=== PATIENT | female | born 1950 | race Caucasian/White ===

== ENCOUNTER 2023-05-26 16:03 | Observation (INO) | payer MEDICARE, SELFPAY ==
[2023-05-26] VITALS (13 sets, daily range): BP systolic 123–144; BP diastolic 60–72; PULSE 63–89; BMI 20.8
[2023-05-26 11:05] LABS: % Basophils 1.5 % (0-2); % Eosinophils 1.9 % (0-6); % Immature Granulocytes 0.2 % (0-0.5); % Monocytes 8.3 % (1.7-9.3); % Neutrophils 64.1 % (42.2-75.2); Absolute Basophils 0.1 10^3/uL (0-0.2); Absolute Eosinophils 0.1 10^3/uL (0-0.7); Absolute Lymphocytes 1.2 10^3/uL (1.2-3.4); Absolute Monocytes 0.4 10^3/uL (0.1-0.6); Absolute Neutrophils 3.1 10^3/uL (1.4-6.5); Hematocrit 35.4 % (37.0-47.0); Hemoglobin 12.4 g/dL (12.0-16.0); Mean Corpuscular Hgb 31.6 pg (27.0-31.0); Mean Corpuscular Volume 90.1 fL (81.0-99.0); Mean Platelet Volume 8.8 fL (7.4-10.4); Nucleated Red Blood Cells % 0 %; Platelet Count 263 10^3/uL (130-400); Red Blood Cell Count 3.93 10^6/uL (4.20-5.40); White Blood Cell Count 4.8 10^3/uL (4.8-10.8)
[2023-05-26 11:22] LABS: ALT (SGPT) 19 U/L (0-35); AST (SGOT) 26 U/L (14-36); Albumin 3.9 g/dl (3.5-5.0); Alkaline Phosphatase 65 U/L (38-126); Blood Urea Nitrogen 17 mg/dl (7-17); Calcium 8.9 mg/dl (8.4-10.2); Carbon Dioxide 24 mmol/L (22-30); Chloride 109 mmol/L (98-107); Glucose 107 mg/dl (70-99); Potassium 3.9 mmol/L (3.5-5.1); Sodium 135 mmol/L (135-145); Total Bilirubin 0.3 mg/dl (0.2-1.3); Total Protein 6.8 g/dl (6.3-8.2); eGFR > 60.00
[2023-05-26 11:47] LABS: Troponin I 0.038 ng/ml
--- NOTE | 2023-05-26 12:08 | ED.GENMED ---
History of Present Illness
General
Chief Complaint: Fainting/Passed Out
Source: patient
Exam Limitations: none
Time Seen by Provider: 05/26/23 12:08
Nursing documentation reviewed up to this point in time: agreed with
Travel History
Have you had any contact with someone who has COVID-19?: No
Do you have any symptoms of coronavirus? Fever > 100 degrees, chills, cough, shortness of breath, sore throat, loss of taste or smell, muscle aches, or headache?: No
History of Present Illness
History of Present Illness:
72-year-old female with history of HLD, MD, appendectomy, hypothyroid presents with episode of dizziness, rigidity and unresponsiveness.
Patient is visiting family from out of town. She was seen at [facility] yesterday for 'tremors' daughter at bedside states that she had general body tremors with clenching of jaw tremors, at 100 and they did a head CT, lab work, UA and
monitored her and daughter states the workup was completely negative.
They got home at 530 this morning, went to bed and worked up by 9 AM. They were sitting at the breakfast table when the patient had a sudden urge to go the bathroom, she got up and felt dizzy so they sat her back down. She was a little nauseous at
the time then daughter states 'all of a sudden she went read her chin was down her chest and she could not lift her chin due to the rigidity, her eyes rolled back;' they could not move her due to the rigidity. Eventually they laid her on the floor
and after about a minute and a half she became responsive again and was confused, had 'trouble speaking,' and no recollection of getting up to go to the bathroom. At that point she vomited once.
Patient has no recollection of the incident. Right now she feels fatigued and she has pain in her left thigh. No recollection of injury to the thigh.
Patient denies headache, change in vision, N/V/C/D. She denies abdominal pain other than her chronic mild abdominal discomfort. She denies chest pain or trouble breathing. Denies numbness or tingling or weakness in her extremities.
Past History
Past History
ED Past Medical History: HTN and Hyperthyroidism
ED Past Surgical History: Appendectomy and Other ([place] teeth)
Social History
Tobacco: Non-smoker
Alcohol: None
Personal:
Living: with family
Review of Systems
Review of Systems
Allergies reviewed?: Yes
All Other Systems: ROS reviewed and negative except as documented in HPI and ROS
Constitutional: Reports fatigue; Denies fever
EENT: Denies sore throat
Respiratory: Denies trouble breathing
Cardiac: Denies chest pain, diaphoresis, palpitations or syncope
ABD/GI: Reports abdominal pain (Mild, chronic, nothing new); Denies nausea, vomiting, diarrhea, constipated, bloody stools or black stools
: Denies dysuria, frequency, flank pain, difficulty voiding or urgency
Musculoskeletal: Reports neck pain (Chronic, nothing new)
Skin: Reports no symptoms
Neurological: Reports weakness and other (1 minute episode of unresponsiveness, rigidity, confusion, trouble speaking as she came out of the); Denies dizzy, headache or numbness
Phy Exam
Physical Exam
Physical Exam:
GENERAL: No acute distress. A&Ox3.
CONSTITUTIONAL: Afebrile.
EYES: PERRL, conjunctivae normal
Neck: Supple
ENMT: moist mucus membranes, Pharynx nl
RESPIRATORY: Regular respirations, nonlabored, lungs clear.
CARDIOVASCULAR: Regular rate and rhythm, no murmurs, no rubs.
GI: Soft, nontender, normal BS
MUSCULOSKELETAL: Moves with ease. Well perfused.
SKIN: Warm, dry, pink
PSYCH: Normal mood and affect. Well kept, interactive and appropriate
NEUROLOGIC: Awake, alert and oriented. No focal neurological deficits speech clear. Strength equal throughout. Cranial nerves II through XII intact.
Course
Orders/Labs/Results
Orders:
Orders
05/26/23 10:54
Electrocardiogram (*1) Urgent
Reason for Study: Syncope
05/26/23 10:55
EKG- Treatment ONCE
05/26/23 10:56
CMP [Comprehensive Metabolic Panel] Urgent
Complete Blood Count/With Diff Urgent
Troponin I Urgent
05/26/23 13:46
Electrocardiogram (*1) Urgent
Reason for Study: Syncope
Other Reason for Exam: repeat
05/26/23 13:47
EKG- Treatment ONCE
05/26/23 13:49
Troponin I Urgent
05/26/23 Dinner
Regular
At Your Request: Full Participation
05/26/23 15:46
Consult Neurology [NEUROLOGY CONSULT] Routine
Consulting Provider: Bro Stone
Was physician already notified: Yes
Reason for consult: Unresponsive episode, prior tremors yesterday
Orthostatic Vital Signs As Directed
Orthostatic VS Frequency: Daily
05/26/23 15:47
Admit/Transfer Patient As Directed
Co-Sign Provider:
Level of Care: Observation services
Assign to:: Telemetry
Physician / Group: orin shah
Diagnosis: unresponsive episode with post confusion, tremors yesterday
Reason for Telemetry: Arrhythmia
Date to Stop Telemetry: 05/29/23
Time to Stop Telemetry: 11:00
Code Status As Directed
Resuscitation Status: Full Code
05/26/23 15:57
Precautions As Directed
Type of Precautions: Seizure
05/26/23 16:00
0.9% Sodium Chloride 1000 ml [Nss] 1,000 ml IV 100 mls/hr
05/26/23 17:38
Acetaminophen [Tylenol] 650 mg PO Q4HPRN PRN
Lorazepam [Ativan] 1 mg IV Q4HPRN PRN
05/26/23 17:38
Activity As Directed
Activity Level: As Tolerated
Intake/ Output As Directed
Frequency: Per unit guidelines
Pneumatic Compression Sleeves As Directed
Type: Knee high
Precautions As Directed
Type of Precautions: Seizure
Vital Signs As Directed
Frequency: Per unit guidelines
Ot Eval And Treat Routine
Pt Eval And Treat Routine
Activity Level: As Tolerated
DX Deep Vein Thrombosis Video Routine
05/27/23 06:00
EEG Routine IN AM
Reason for Exam: tremors confusion concern seizure
Cardiovascular Evaluation IN AM
Complete Blood Count/With Diff IN AM
Comprehensive Metabolic Panel IN AM
TSH Reflex To Free T4 IN AM
MRI Brain [MR Brain W/o & With Contrast] IN AM
Comment:
Reason For Exam: unresponsive episode
OK for patient to be off Cardiac Monitoring for MRI: Yes
Recent pill cam endoscopy?: No
Pacemaker/Defibrillator?: No
Levothyroxine [Synthroid] 50 mcg PO DAILY@0600
05/27/23 08:00
Multivitamin [Theragran] 1 tablet PO DAILY
cholecalciferol (vitamin D3) 1 tablet PO DAILY
05/29/23 11:00
DC Protocol for Telemetry ONCE
Abnormal Lab Results
05/26/23
10:56
RBC 3.93 L 10^6/uL
(4.20-5.40)
Hct 35.4 L %
(37.0-47.0)
MCH 31.6 H pg
(27.0-31.0)
Chloride 109 H mmol/L
(98-107)
Glucose 107 H mg/dl
(70-99)
Troponin I 0.038 H* ng/ml
05/26/23 10:56
05/26/23 10:56
Vital Signs
Initial and Last Documented VS:
Initial Vital Signs
Temp Pulse Resp BP Pulse Ox
98.1 F 66 16 141/68 99
05/26/23 10:43 05/26/23 10:43 05/26/23 10:43 05/26/23 10:43 05/26/23 10:43
Last Documented Vital Signs
Temp Pulse Resp BP Pulse Ox
98.3 F 81 20 129/72 99
05/26/23 17:49 05/26/23 17:49 05/26/23 17:49 05/26/23 17:49 05/26/23 17:49
MDM/Problems Addressed
Differential Diagnosis Includes:
vaso vagal syncope, seizure
MDM/Problems Addressed:
72-year-old female with history of HLD, MD, appendectomy, hypothyroid presents with episode of dizziness, rigidity and unresponsiveness.
Patient is visiting family from out of town. She was seen at [facility] yesterday for 'tremors' daughter at bedside states that she had general body tremors with clenching of jaw tremors, at 100 and they did a head CT, lab work, UA and
monitored her and daughter states the workup was completely negative.
They got home at 530 this morning, went to bed and worked up by 9 AM. They were sitting at the breakfast table when the patient had a sudden urge to go the bathroom, she got up and felt dizzy so they sat her back down. She was a little nauseous at
the time then daughter states 'all of a sudden she went read her chin was down her chest and she could not lift her chin due to the rigidity, her eyes rolled back;' they could not move her due to the rigidity. Eventually they laid her on the floor
and after about a minute and a half she became responsive again and was confused, had 'trouble speaking,' and no recollection of getting up to go to the bathroom. At that point she vomited once.
Patient has no recollection of the incident. Right now she feels fatigued and she has pain in her left thigh. No recollection of injury to the thigh.
Patient denies headache, change in vision, N/V/C/D. She denies abdominal pain other than her chronic mild abdominal discomfort. She denies chest pain or trouble breathing. Denies numbness or tingling or weakness in her extremities.
Afebrile, NAD, awake alert and oriented. No focal neurological deficits. No suspicious infectious signs.
Records from [facility] retrieved and reviewed, her vital signs were normal and stable the entire stay
Triage note reports she came from home shaking uncontrollably and with bilateral leg pain and low back pain.
Labs including CBC,CMP, CPK, Mg++, Influenza, Respiratory panel, Covid, Mycoplasma pneumoniae, U/A all WNL
Head CT report: NAD, normal for age
EKG: NSR
Results scanned into her chart
1:15 PM
CBC normal
CMP normal
Troponin is mildly elevated 0.038
Patient denies any chest pain or trouble breathing.
3:00 PM
EKG #2 NSR unchanged
Troponin #2 trending down 0.032 within normal limits
Plan: Admit: Witnessed seizure like activity, short period of unresponsiveness
Hospitalist notified of admission
*EKG
EKG Intrepretation Date: 05/26/23
Interpretation: normal
Comparison EKG: no comparison EKG present
Rate: normal
Rhythm: sinus
Edwards: normal axis
Interval: normal interval
QRS Pattern: normal QRS
Ischemia: no ischemia
*Critical Care Note
Total Time (30-74mins, 75-104mins- exclusive of procedures): Not Applicable
ED Attending Note
-
Portions of this chart may have been created with voice recognition software.� Occasional wrong word or��sound alike� substitutions may have occurred due to the inherent limitations of voice recognition software.
Discharge Plan
Departure
Patient Disposition: Admit
Date of Disposition: 05/26/23
Time of Disposition: 15:05
Admit to: Med/Surg
Presentation/result/management discussed w/ accepting MD/DO: Hospitalist
Condition: Fair
Discharge Problem:
Episode of loss of consciousness, Witnessed seizure-like activity
Interventions
Interventions:
*Risk Screen - Suicide Last Done: 05/26/23 10:43
*General Assessment Last Done: 05/26/23 10:43
*Neglect/Abuse Screening Last Done: 05/26/23 10:43
ED- Fall Risk Assessment Last Done: 05/26/23 10:43
*ED COVID-19 Vaccine History Last Done: 05/26/23 10:43
*Nursing Disposition Last Done: 05/26/23 17:34
ED- Cardiac Assessment Last Done: 05/26/23 11:16
ED- Neurological Assessment Last Done: 05/26/23 13:55
Discharge Date and Time
Discharge Date/Time: 05/26/23 17:35
[2023-05-26 14:23] LABS: Troponin I 0.032 ng/ml
--- NOTE | 2023-05-26 15:16 | HPS.HSE ---
Family Physician
-
Family Physician: * NONE
Chief Complaint
-
Unresponsive episode with vomiting and memory loss
History of Present Illness
72-year-old female who is visiting her daughter from out of town who was seen at [facility] yesterday due to chattering of her teeth and leg tremors that lasted 1.5 hours at home. She had CT head lab work urinalysis with negative
workup. They got home at approximately 530 this a.m. went to bed and at 9 AM while sitting at the breakfast table she reported feeling nauseous she stood up and then vomited and her daughter sat her back down. She has no recall of events after
that her states when she sat down she slumped over on the table and would not respond he yelled at her and then she woke up. The daughter called 911 they advised to get her onto the ground lying. Patient has no recollection of the event.
She complains of right frontal headache over the last 3 days which is not normal for her. She started turmeric pepper and garlic over the last 2 to 3 weeks but no other new medications. She denies headache, blurred vision, abdominal pain, nausea,
diarrhea, urinary symptoms. She ambulated to the bathroom in the ER with a steady gait. She is past medical history of hypertension, hyperthyroidism, psoriasis
Medical History
Past Medical History
Past Medical History: Reports Other
Additional Past Medical History:
HTN
Hyperthyroidism
Psoriasis
Past Surgical History: Reports Other
Additional Past Surgical History:
Appendectomy
[place] teeth extraction
Social History
Tobacco: Non-smoker
Alcohol: None
Drug: None
Personal:
Living: With Family ( [place])
Employment: Retired
Family History
Family History: Other (Mother cardiomyopathy, DM 269, father [place] age 72)
Allergies / Home Medications
Allergies reflects when Allergies were last updated in [employer]
Home Medications with original date entered in [employer]
Allergy/Medication List:
Allergies
Allergy/AdvReac Type Severity Reaction Status Date / Time
Sulfa (Sulfonamide Allergy Unknown Verified 05/26/23 10:54
Antibiotics)
Home Medications
CoQ-10 1 cap PO DAILY 05/26/23
Turmeric + Garlic + Peppermint 1 cap PO DAILY 05/26/23
acetaminophen 500 mg tablet (Tylenol Extra Strength) 500 mg PO DAILYPRN PRN mild pain 05/26/23
cholecalciferol (vitamin D3) 1 tab PO DAILY 05/26/23
levothyroxine 50 mcg tablet 50 mcg PO DAILY 05/26/23
red yeast rice 600 mg capsule 600 mg PO DAILY 05/26/23
therapeutic multivitamin 1 tab PO DAILY 05/26/23
Review of Systems
-
History Source: Patient and Family ( [place])
A 12 point ROS was completed and negative except as noted: Yes
Constitutional: Denies Fever, Fatigue or Chills
EENT: Denies Sore Throat or Runny Nose
Respiratory: Denies Cough or Trouble Breathing
Cardiac: Denies Chest Pain, Diaphoresis, Palpitations or Syncope
Abdomen/GI: Reports Nausea and Vomiting (X 1 episode); Denies Abdominal Pain, Diarrhea, Constipated or Bloody Stools
: Denies Dysuria, Frequency, Flank Pain, Incontinence, Difficulty Voiding or Urgency
Musculoskeletal: Denies Joint Pain, Joint Swelling or Edema
Skin: Denies Itching or Rash
Neurological: Reports Headache (Right frontal); Denies Dizzy, Weakness or Numbness
Endocrine: Reports No Symptoms
Hematologic/Lymphatic: Reports No Symptoms
Psych: Reports Calm
Physical Exam
Vital Signs
Vital Signs
Temp Pulse Resp BP Pulse Ox
98.1 F 80 19 137/66 100
05/26/23 10:43 05/26/23 11:15 05/26/23 11:15 05/26/23 11:00 05/26/23 11:15
Physical Exam
General: Comfortable and Conversant; No Fever, Chills, Slurred Speech or Obese
HEENT: NormoCephalic, Anicteric, Moist mucous membranes, PERRLA, [place] Conjunctivae, No Ptosis and Neck Nontender
Respiratory: Clear; No Wheezes, Rales or Rhonchi
Cardiac: S1/S2 and Regular Rhythm; No Murmur, Rub, Gallop or Peripheral Edema
Breast: Deferred by me
GI: Soft, Non Tender, Non Distended, Normal Bowel Sounds and No Hepatosplenomegaly
Rectal: Deferred by Provider
Genito-urinary: Deferred by me
Musculoskeletal: No Clubbing, No Cyanosis and No Edema
Skin: Warm, Dry and Other (1 psoriatic plaque right lower extremity); No Rash
Neuro: AO x 3 (Poor recall of prior unresponsive episode today), Nonfocal/grossly intact, Cranial Nerves Intact, No Sensory Deficits and Other (Steady gait walking to bathroom); No Slurred Speech, Facial Droop or Tremors
Psych: Calm
Laboratory Results
-
05/26/23 10:56
05/26/23 10:56
Laboratory Results
Total Bilirubin 0.3 mg/dl (0.2-1.3) 05/26/23 10:56
AST 26 U/L (14-36) 05/26/23 10:56
ALT 19 U/L (0-35) 05/26/23 10:56
Alkaline Phosphatase 65 U/L (38-126) 05/26/23 10:56
Troponin I 0.032 ng/ml 05/26/23 13:49
Impression/Plan
-
Impression/plan:
Observation telemetry
#Unresponsive episode with confusion concern for CVA vs seizure vs orthostasis
-Had negative CT yesterday, lab work, UA at [facility] per records
-Consult Neurology
-Monitor for seizure activity
-Orthostatic vitals
-IV Nss
-EEG
-MRI brain with and without
- ativan 1mg prn seizure
-PT/OT/case management consult
#Non-[place] troponin elevation
Troponin 0.038> repeat 0.032 will trend
EKG: NSR 74 bpm, QTc 439 MS prior inferior/anterior infarct
#HTN�benign
137/66
no meds
#Hyperthyroidism
-Check TSH with free T4 reflex
-Continue levothyroxine 50 mcg daily
#Psoriatic arthritis Hx
Patient just started turmeric, garlic and pepper 2 to 3 weeks ago
DVT prophylaxis
SCDs
Full code
--- NOTE | 2023-05-26 15:52 | W.PN.UPDATE ---
Update Note
Progress Note Update
I saw and examined the patient.
The BOW MACHINE OPERATOR's note was reviewed and I agree with the note.
This note is an addendum to H&P by Reena Sampson
Comment:
72 yo female with no significant past medical history who is presenting from home with syncopal episode status post vomiting and episode of tremors with teeth clenching and body shakes. Patient was evaluated outside hospital where she underwent
workup including CT of the head which was negative and was discharged home. Patient denies any prior events of similar situation. Denies any chest pain. States of some mild frontal headache. No vision problems. Denies any numbing or tingling
sensation. Denies any neck pain. No fevers or chills noted. States did not have much to eat in the last 24 hours. Currently denies any nausea or vomiting. Denies any neck pain.
General no acute distress holding hands with spouse
HEENT neck is supple trach is midline negative for stridor
Cardiac S1-S2 regular rate rhythm
Lungs are clear to auscultation bilaterally
Abdomen positive bowel sounds soft nontender
Extremities no edema
Neuro awake alert and oriented nonfocal grossly intact
Impression
Syncopal episode likely triggered by vasovagal status post vomiting
Suspected seizure event
Troponin elevation
Suspected dehydration
Primary hypertension�not on meds
Psoriatic arthritis
Plan
Check orthostatic vital sign
Start patient IV fluids
Check MRI of the brain with and without contrast
Ativan as needed for seizures
EEG
Neurology evaluation
Seizure precaution for now
If repeat events start Keppra 500 mg every 12 with loading dose of 1 g
Continue other home meds
EKG with normal sinus rhythm. Ventricular rate of 74. QTc 439. No significant ST or T wave changes noted. No chest pain currently.
DVT prophylaxis
Discussed with spouse at bedside in detail
I spent a total of 78 minutes with the patient or on the floor. More than 50% of this time involved counseling and coordination of care.
[2023-05-26] MEDS: NSS 1000 IV (18:45)
[2023-05-27] VITALS (7 sets, daily range): BP systolic 102–156; BP diastolic 62–87; PULSE 75–97; O2SAT 98
--- NOTE | 2023-05-27 03:18 | PTCARENOTE ---
Pt sleeping intermittently t/o the night. Pt confused and forgetful at times, especially when first waking up doesnt remember where she is. Reality orientation provided. Bed alarm in place. IVF infusing as ordered. Will continue to monitor.
[2023-05-27] MEDS: NSS 1000 IV (05:19)
[2023-05-27] MEDS: SYNTHROID 50 MCG PO (05:19)
[2023-05-27 08:12] LABS: % Basophils 1.1 % (0-2); % Eosinophils 1.7 % (0-6); % Immature Granulocytes 0.2 % (0-0.5); % Lymphocytes 25.3 % (20.5-51.1); % Monocytes 7.6 % (1.7-9.3); % Neutrophils 64.1 % (42.2-75.2); Absolute Basophils 0.1 10^3/uL (0-0.2); Absolute Eosinophils 0.1 10^3/uL (0-0.7); Absolute Lymphocytes 1.2 10^3/uL (1.2-3.4); Absolute Monocytes 0.4 10^3/uL (0.1-0.6); Hemoglobin 13.6 g/dL (12.0-16.0); Mean Corp Hgb Conc. 35.8 g/dL (33.0-37.0); Mean Corpuscular Hgb 32.5 pg (27.0-31.0); Mean Corpuscular Volume 90.7 fL (81.0-99.0); Mean Platelet Volume 9.1 fL (7.4-10.4); Nucleated Red Blood Cells % 0 %; Platelet Count 278 10^3/uL (130-400); Red Blood Cell Count 4.19 10^6/uL (4.20-5.40); Red Cell Dist. Width 13.2 % (11.5-14.5); White Blood Cell Count 4.7 10^3/uL (4.8-10.8)
--- NOTE | 2023-05-27 08:17 | CON.NEURO4 ---
Addendum entered and electronically signed by Bro Stone MD 05/27/23 12:19:
I saw and evaluated the patient I reviewed the note by Hellen Hernandez agree with the findings with the following comments:
One 72-year-old woman with past medical history of hypothyroidism, hypertension, psoriasis who presents to the hospital with an episode of losing consciousness witnessed at home after some vomiting at breakfast, and had had an episode of shaking
with altered consciousness around 2 days previous for which she had hospitalization nearby.
Patient reports no family history of seizures or epilepsy or family history of syncope, no previous episodes of seizures as a child no meningitis or serious head injuries in her life. Reports no episodes of shaking like instances before but has had
some fainting previously.
Patient reports around 2 days ago 05/24 in the evening she was reading in a supine position in bed and began to feel somewhat strange started to feel like her eyelids were repeatedly blinking bilaterally with some chattering of her teeth and then low
amplitude bilateral shaking of her legs and arms during which she felt that she had retained consciousness. Her reports that he witnessed this and saw that she began with bilateral leg shaking as well as arm shaking and that her eyes were
open with this and it did appear that she seemed to hear him and try to talk but could not talk normally. Total duration of shaking around 20 to 30 minutes. She had evaluation at [facility] and had CT head noncontrast urinalysis and
blood work reportedly and was discharged in improved condition. No tongue biting or urinary or bowel incontinence with this episode.
Yesterday morning on 05/25 she had eaten little breakfast with soup and then began to not feel well and vomited, shortly after this her witnessed her to tuck her chin down and then quickly retain normal level of consciousness and was brought
to the ER here.
No history of any recent stressors.
Patient does report some short-term memory loss recently that is been concerning to her.
Neurologic examination shows normal attention and conversation no aphasia no neglect normal cranial nerves motor function sensory and reflexes.
EEG normal
CT head noncontrast unremarkable
Assessment:
1: Very likely vasovagal induced syncope after vomiting more recently
2: The more recent episode of whole body low amplitude shaking with some degree of retained consciousness and ability to hear and attempt speaking with her does not sound like epileptic seizure. Differential diagnosis would include sleep
disorder, metabolic abnormality, psychogenic nonepileptic seizure
3: Recent short-term memory problems
Recommendations
-Would not start any chronic antiseizure medications
-Will check vitamin B1 B12 folate ammonia ferritin iron and total iron-binding content
-Check MRI of the brain and MRA of the head and neck
-Check transthoracic echocardiogram and monitor on cardiac telemetry
-Discussed with the patient the possibility for stress or psychogenic seizures that would be treatable with stress reduction, therapy. Unclear on if further episodes could happen but would not be treated with any medications.
-Would benefit from outpatient neurology follow-up for further evaluation of short-term memory difficulties
Original Note:
Consultation - Neurology 4
-
CONSULTING PHYSICIAN: Marti Stone MD
REFERRING PHYSICIAN: Hospitalists/JULIA Luo
DICTATED BY: JULIA Galarza
DATE/TIME OF REQUEST: 05/26/23
DATE/TIME OF CONSULTATION: 05/27/23
Reason for Consultation: Tremors, unresponsive episode
History of Present Illness:
This is a 72-year-old right-handed female who has presented to the hospital on 05/26/23 with report of passing out event. She has poor recollection of the past several days and some of this information is obtained from her at bedside. Two
nights ago on 05/25/23 patient reports that she got into bed and was reading when she started to feel 'odd.' Her eyelids started blinking repeatedly and her teeth were chattering uncontrollably. Her reports that both of her legs and arms were
shaking. She had her eyes open and seemed to be able to hear him. She tried to talk and he wasn't able to understand what she was saying. This lasted for 20-30 minutes before EMS arrived, he thinks she was still shaking when they put her in the
ambulance. He did not go to the hospital with her and is unsure how she was there, their daughter who is not here went with her. She denies any tongue biting or bowel/bladder incontinence. She was evaluated at [facility] following this
event and had an unremarkable CT head, lab work, and UA prior to discharge. She went to bed at 0530 in the morning on 05/25/22, and then woke up for the day at 0900. She reports feeling mildly nauseous and very hungry. She got a bowl of soup and sat
down at the breakfast counter. She had a few bites of soup but then started to not feel well got up to use the bathroom. She felt dizzy upon standing and her daughter assisted her to sit back down. She then proceeded to vomit. Her family reports
that she then became unresponsive, flushed, her chin was tucked down to her chest, her body was rigid, and her eyes rolled back. Her reports that he yelled loudly to 'wake her up' and after about 1 minute she became responsive again but was
confused, had trouble getting her words out, and did not recall the event. She denies any tongue biting or incontinence with this event and has no muscle aching following the event. Currently, she reports feeling at her baseline. She denies any
headache, dizziness, vision changes, speech/swallow difficulty, nausea, numbness weakness, chest pain, palpitations, and shortness of breath. She reports a minor head injury as a child with a resultant 'dent' on the top of her head. She denies any
history of seizure, starring episodes, or meningitis. She does report having a few syncopal events in her younger years. She reports memory issues in the past few months including one episode of forgetting that she had eaten breakfast already that
day.
Past Medical History: Hypothyroidism, HTN, HLD, psoriasis, arthritis
Surgical History: Appendectomy, wisdom teeth removal
Family History: Reviewed and noncontributory.
Social History: Denies tobacco, alcohol, and illicit drug use.
Allergies: Sulfa.
Home Medications: See below.
Review of Symptoms:
Patient denies any fever, headache, chest pain, shortness of breath, GI or symptoms.
�Per the HPI.�All systems are reviewed negative except above.
Physical Exam:
The patient is afebrile, abdomen is nondistended, breathing is unlabored, skin is warm and dry, no edema.
Neurologic Examination:
The patient is awake, alert and oriented x 3. She is able to follow commands and answer questions appropriately. There is no aphasia or dysarthria. On cranial nerve assessment, pupils are 3 mm bilateral, round and reactive to light and
accommodation. Visual topete are full. Extraocular movements are intact. Facial sensations are intact and bilaterally symmetrical, there is no facial asymmetry. Hearing is intact bilaterally to normal conversation volume. Tongue palate and uvula are
midline. Sternocleidomastoid strengths are full bilaterally. Motor strengths are 5/5 bilateral upper and lower extremities on medical research George scale. There is no drift or involuntary movement noted. Deep tendon reflexes are 2+ bilateral
upper and lower extremities and Babinski is absent bilaterally. There was no extinction noted on double simultaneous stimulation. Coordination is intact by finger to nose bilaterally.
Lab Results: See below.
Neuro Imaging:
1. EEG 05/27/23: Unremarkable.
Differentials for the patient's presentation include:
1. Syncopal event, possibly orthostasis likely producing second event/symptoms.
2. First event sounds more supportive of metabolic disturbance or stress response producing body shaking; not very supportive of epileptic seizure.
3. Patient expresses concern for cognitive impairment, unclear source of this.
Patient has the following risk factors for their symptoms: None.
Recommendations:
-MRI brain noncontrast, MRA head/neck ordered/pending.
-TTE ordered/pending.
-No clear indication for initiating antiseizure medication at this time.
-Check orthostatic vital signs BID.
-Checking blood work for metabolic abnormalities.
-PT/OT/ST evaluations.
-DVT prophylaxis.
-Patient may benefit from outpatient neuropsychological testing and neurology follow-up closer to their home.
-Will follow pending results.
Discussed patient care with: Dr. Stone, the patient, patient's spouse
Vital Signs and Labs
-
Vital Signs and Labs:
Vital Signs
Temp Pulse Resp BP Pulse Ox
97.8 F 79 16 141/74 97
05/27/23 09:16 05/27/23 09:16 05/27/23 09:16 05/27/23 09:16 05/27/23 09:16
Lab Results
05/27/23 07:02
05/27/23 07:02
Sodium 138 mmol/L (135-145) 05/27/23 07:02
Potassium 3.9 mmol/L (3.5-5.1) 05/27/23 07:02
BUN 11 mg/dl (7-17) 05/27/23 07:02
Glucose 84 mg/dl (70-99) 05/27/23 07:02
Calcium 9.0 mg/dl (8.4-10.2) 05/27/23 07:02
LDL Cholesterol, Calc 168 mg/dl 05/27/23 07:02
Vitamin B12 878 pg/ml (239-931) 05/27/23 07:02
Medications
-
Active Medications
Generic Name Dose Route Start Last Admin
Trade Name Freq PRN Reason Stop Dose Admin
Acetaminophen 650 mg 05/26/23 17:38
Acetaminophen 325 Mg Tablet PO 06/23/23 17:37
Q4HPRN PRN
mild pain/COOL/temp> 100.4F
Sodium Chloride 1,000 mls @ 100 mls/hr 05/26/23 16:00 05/27/23 05:19
Nss IV 1,000 mls
.Q10H HILL Administration
Levothyroxine Sodium 50 mcg 05/27/23 06:00 05/27/23 05:19
Levothyroxine 50 Mcg Tablet PO 06/24/23 05:59 50 mcg
DAILY@0600 HILL Administration
Lorazepam 1 mg 05/26/23 17:38
Lorazepam 2 Mg/Ml Vial IV 06/23/23 17:37
Q4HPRN PRN
seizure
Multivitamins Therapeutic 1 tablet 05/27/23 08:00
Multivitamin Tablet PO 06/24/23 07:59
DAILY HILL
Non-Formulary Medication 1 tablet 05/27/23 08:00
Cholecalciferol (Vitamin D3) PO 06/24/23 07:59
DAILY HILL
Sodium Chloride 0.5 ml 05/26/23 17:40
Nss (Pf) 10 Ml Vial For Ativan 1 Mg Dose IV 06/23/23 17:39
Q4HPRN PRN
IV LORAZEPAM DILUTION
Sodium Chloride 0 flush 05/26/23 18:00
Sodium Chloride 0.9% (Flush) Syringe IV 06/23/23 17:59
PER PROTOCOL HILL
Home Medications
�Medication �Instructions �Recorded
CoQ-10 1 cap PO DAILY 05/26/23
Turmeric + Garlic + Peppermint 1 cap PO DAILY 05/26/23
acetaminophen 500 mg tablet 500 mg PO DAILYPRN PRN mild pain 05/26/23
(Tylenol Extra Strength)
cholecalciferol (vitamin D3) 4,000 mg PO DAILY 05/26/23
levothyroxine 50 mcg tablet 50 mcg PO DAILY 05/26/23
red yeast rice 600 mg capsule 600 mg PO DAILY 05/26/23
therapeutic multivitamin 1 tab PO DAILY 05/26/23
[2023-05-27 08:52] LABS: ALT (SGPT) 18 U/L (0-35); AST (SGOT) 27 U/L (14-36); Albumin 3.9 g/dl (3.5-5.0); Alkaline Phosphatase 64 U/L (38-126); Blood Urea Nitrogen 11 mg/dl (7-17); Carbon Dioxide 21 mmol/L (22-30); Chloride 107 mmol/L (98-107); Estimated Creatinine Clearance 72 ml/min; Glucose 84 mg/dl (70-99); HDL Cholesterol 95 mg/dl; Iron 114 ug/dl (37-170); LDL Cholesterol, Calculated 168 mg/dl; Potassium 3.9 mmol/L (3.5-5.1); Sodium 138 mmol/L (135-145); Total Bilirubin 0.5 mg/dl (0.2-1.3); Total Cholesterol 278 mg/dl (50-199); Total Protein 6.9 g/dl (6.3-8.2); Triglyceride 76 mg/dl (10-149); Very Low Density Lipoprotein 15 mg/dl (0-30); eGFR > 60.00
[2023-05-27 09:04] LABS: Percent Saturation 40 % (20-50); Total Iron Binding Capacity 280 ug/dl (265-497)
[2023-05-27 09:10] LABS: TSH Reflex To Free T4 2.11 uIU/ml (0.47-4.68)
--- NOTE | 2023-05-27 09:12 | EEG.RPT ---
Electroencephalogram Report
Recording
Date of EE05/27/23
Type of EEG: Routine
Length of EEG recordin minutes
Done with Video Recording: Yes
Patient Status: Inpatient
Recording Conditions: Awake, Drowsy and Asleep
Hyperventilation Performed: Yes
Photic Stimulation Performed: Yes
Report
LESS THAN 1 HOUR EEG REPORT
EEG INTERPRETATION:
Unremarkable EEG for age
CLINICAL CORRELATION:
A normal EEG does not rule out a diagnosis of epilepsy. If clinical suspicion for seizure persists, a prolonged recording may be warranted.
Clinical correlation is advised.
METHODS:
A 21 channel digitized electroencephalogram (EEG) was performed in the Clinical Neuro[facility] Laboratory. The 10/20 international system of electrode placement was used with ECG and lateral/vertical eye movements recorded. Persyst quantitative EEG
analysis was performed.
ELECTROENCEPHALOGRAPHER IMPRESSION(S):
Quality of study
Good
Background
Unremarkable, well maintained, medium amplitude alpha-frequency and unremarkable anterior-posterior voltage gradient
With eye opening the background activity changed to a low voltage mixture of frequencies.
Sleep
Drowsiness present
Stage 1 and 2 sleep recorded
Hyperventilation
Did not activate the record
Photic Stimulation
Did not activate the record
ECG
Normal sinus rhythm
[2023-05-27 09:14] LABS: Ferritin 19.5 ng/ml (11.1-264.0)
[2023-05-27 09:29] LABS: Vitamin B12 878 pg/ml (239-931)
[2023-05-27] MEDS: THERAGRAN 1 TABLET PO (11:21)
[2023-05-27 11:30] LABS: Ammonia < 9 umol/L (9-30)
--- NOTE | 2023-05-27 11:38 | W.PN.HOSP.TC ---
Today's Communication/Plan
-
MRI ordered
Assessment / Plan
Assessment / Plan
#Unresponsive episode with confusion concern for CVA vs seizure vs orthostasis
-Had negative CT day [employer], lab work, UA at [facility] per records
-Neurology consult
-MRI ordered
-Monitor for seizure activity
-Orthostatic vitals
-stop fluids
-EEG
- ativan 1mg prn seizure
-PT/OT/case management consult
#Non-FL troponin elevation
Troponin 0.038> repeat 0.032 will trend
EKG: NSR 74 bpm, QTc 439 MS prior inferior/anterior infarct
#HTN�benign
137
no meds
#Hyperthyroidism
-Check TSH with free T4 reflex
-Continue levothyroxine 50 mcg daily
#Psoriatic arthritis Hx
Patient just started turmeric, garlic and pepper 2 to 3 weeks ago
DVT prophylaxis
SCDs
Full code
Anticipated Discharge: Within 24 hours
Subjective/Interval History
-
Date of Service: May 27, 2023
no further episodes unresponsiveness
no chest pain or shortness of breath
COOL resolved
Objective Data
-
Labs:
Laboratory Results
05/27/23
07:02
WBC 4.7 L
Hgb 13.6
Hct 38.0
Plt Count 278
Sodium 138
Potassium 3.9
Chloride 107
Carbon Dioxide 21 L
BUN 11
Creatinine 0.5 L
Glucose 84
Calcium 9.0
Total Bilirubin 0.5
AST 27
ALT 18
Alkaline Phosphatase 64
Vital Signs:
Vital Signs
Temp Pulse Resp BP Pulse Ox
97.8 F 79 16 141/74 97
05/27/23 09:16 05/27/23 09:16 05/27/23 09:16 05/27/23 09:16 05/27/23 09:16
I&O
05/26/23 05/27/23 05/28/23
06:59 06:59 06:59
Intake Total 1200 / 1200
Balance 1200 / 1200
Review of Systems
-
History Source: Patient
All other systems: Reviewed and negative
Physical Exam
-
General: No Apparent Distress
HEENT: PERRLA
Respiratory: Clear to Auscultation; Negative Wheezes
Cardiac: Regular Rhythm and S1/S2
GI: Soft and Nontender
Neuro: AO x 3 and No Motor Deficits
Data Reviewed
-
Diagnostic Radiology: Report Reviewed by me
Labs: Labs Reviewed by me
--- NOTE | 2023-05-27 14:29 | PTOTSP ---
Pt is independent in room in ADLs and functional mobility/transfers. No skilled acute care needs at this time. Will sign off.
--- NOTE | 2023-05-27 16:50 | CM ---
AD information proved to patient, patient lives with spouse in [facility], they are visiting daughter in area, patent is independent with adl's and ambulation, no dme, patient drives, patient has a prescription plan and uses [facility] pharmacy.
Plan; Home with spouse when stable.
[2023-05-28 04:00] VITALS: BP 136/57
[2023-05-28] MEDS: SYNTHROID 50 MCG PO (05:31)
[2023-05-28 07:00] VITALS: BP 115/59
[2023-05-28] MEDS: THERAGRAN 1 TABLET PO (10:23)
--- NOTE | 2023-05-28 10:51 | W.PN.HOSP.TC ---
Today's Communication/Plan
-
OK for DC today
Assessment / Plan
Assessment / Plan
BRAIN MRI
IMPRESSION:
No acute intracranial abnormality. Mild chronic senescent changes.
HEAD MRA
IMPRESSION:
No MRA evidence for high-grade stenosis or occlusion of the [place].
NECK MRA
IMPRESSION:
1. Patent bilateral carotid arterial systems.
2. 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
Tremors with blinking, teeth chattering and shaking arms/legs
-worked up at [facility]], not typical for seizure
Vasovagal syncope in setting of vomiting
-no further syncope
-no events on tele
-s/p MRI/MRA without acute abnormalities
-B12 and TSH WNL
-OK for DC and outpatient neurology follow up
#Non-VA troponin elevation
Troponin 0.038> repeat 0.032 will trend
EKG: NSR 74 bpm, QTc 439 MS prior inferior/anterior infarct
HLD
-[place] Risk score = 2.3%
-diet/excericse - follow up with PCP
#HTN�benign
137/66
no meds
#Hyperthyroidism
-Check TSH with free T4 reflex
-Continue levothyroxine 50 mcg daily
#Psoriatic arthritis Hx
Patient just started turmeric, garlic and pepper 2 to 3 weeks ago
DVT prophylaxis
SCDs
Full code
Anticipated Discharge: Today
Subjective/Interval History
-
Date of Service: May 28, 2023
feeling well and wants to go home
Objective Data
-
Vital Signs:
Vital Signs
Temp Pulse Resp BP Pulse Ox
97.8 F 89 16 115/59 96
05/28/23 07:00 05/28/23 07:00 05/28/23 07:00 05/28/23 07:00 05/28/23 07:00
I&O
05/27/23 05/28/23 05/29/23
06:59 06:59 06:59
Intake Total 1200 / 1200 1460 / 1460
Balance 1200 / 1200 1460 / 1460
Review of Systems
-
History Source: Patient
All other systems: Reviewed and negative
Physical Exam
-
General: No Apparent Distress
HEENT: PERRLA
Respiratory: Clear to Auscultation; Negative Wheezes
Cardiac: Regular Rhythm and S1/S2
GI: Soft and Nontender
Neuro: AO x 3 and No Motor Deficits
Psych: Calm
Data Reviewed
-
Diagnostic Radiology: Report Reviewed by me
--- NOTE | 2023-05-28 11:01 | W.DS.TRANS ---
DC Summary - Marketing Communications Coordinator
-
Discharge Instructions:
Discharge Diagnosis/Procedures vasovagal syncope
Diet Low Cholesterol
Activity As tolerated
Driving Restrictions As prior to admission
Bathing Restrictions None
Instructions:
Stand-Alone Forms:
Changes to Home Medications: No
Discharge Medications:
DC Medications w/original date entered in [employer]
CoQ-10 1 cap PO DAILY 05/26/23
Turmeric + Garlic + Peppermint 1 cap PO DAILY 05/26/23
acetaminophen 500 mg tablet (Tylenol Extra Strength) 500 mg PO DAILYPRN PRN mild pain 05/26/23
cholecalciferol (vitamin D3) 4,000 mg PO DAILY 05/26/23
levothyroxine 50 mcg tablet 50 mcg PO DAILY 05/26/23
red yeast rice 600 mg capsule 600 mg PO DAILY 05/26/23
therapeutic multivitamin 1 tab PO DAILY 05/26/23
Home Medication Changes
Pending Results: No
--- NOTE | 2023-05-28 11:33 | CM ---
Chart reviewed and patient is for discharge to home today, spouse to transport.
Plan; Home no needs.
[2023-05-28 11:49] VITALS: BP 113/61
--- NOTE | 2023-05-28 13:32 | W.DCSUMMARY ---
Discharge Summary
Discharge Data
Date of Admission: 05/26/23
Date of Discharge: 05/28/23
-
Pending Results: No
Hospital Course
Discharging Physician : Dr. Hellen Christiansen
Disposition : Home
Principal Discharge diagnosis : Vasovagal syncope
Hospital Course :
Ms. Paty Rojas is a 72 yo woman with hx hypothyroidism, hypertension, psoriasis with recent admission 2 days prior to [facility] for an episode of tremors with consciousness (teeth chattering, shaking of arms and legs) status post negative
work-up presents to after the next day she had a witnessed episode of syncope after vomiting.
Triage vitals stable. Labs essentially unremarkable. She was admitted to medicine with neurology consulting for further work-up. Brain MRI and Head/Neck MRA unremarkable. TTE with nl EF, no significant valve abnormalities. No significant events
on telemetry. Presentation of this admission likely 2/2 vasovagal syncope given association with GI upset. Patient had no further events while inpatient.
She is discharged home with no changes in medications and told to follow up with her PCP and local neurologist.
Of note, total cholesterol elevated, [place] risk = 2.3% . Patient educated on importance of diet/exercise and close follow up.
Time spent on discharge was 31 minutes.
Important imaging findings :
BRAIN MRI
IMPRESSION:
No acute intracranial abnormality. Mild chronic senescent changes.
HEAD MRA
IMPRESSION:
No MRA evidence for high-grade stenosis or occlusion of the [place].
NECK MRA
IMPRESSION:
1. Patent bilateral carotid arterial systems.
2. 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
TTE
CONCLUSIONS
1. Left ventricle: Normal size and function with an estimated ejection
fraction of 61%. No regional wall motion abnormalities
2. Right ventricle: Normal
3. Atria: Normal
4. Mitral valve: No mitral regurgitation
5. Aortic valve: No aortic stenosis or aortic insufficiency
6. Tricuspid valve: Trace tricuspid regurgitation with estimated pulmonary
artery systolic pressures of 26 mmHg
7. No prior studies for comparison
Procedure findings :
Discharge Plan
-
Patient Disposition: Home (Routine Discharge)
Discharge Diagnosis/Procedures: vasovagal syncope
Diet: Low Cholesterol
Activity: As tolerated
Driving Restrictions: As prior to admission
Bathing Restrictions: None
Activity Restrictions/Additional Instructions:
Please follow up with your PCP within next week and schedule an outpatient neurology visit within the next 4-6 weeks.
Your cholesterol is 278. Based on risk calculator, it is not recommended to start a cholesterol lowering drug at this point. Please focus on diet and exercise (low fat diet) and discuss this further with your PCP. Your cholesterol levels should
be monitored as outpatient.
Referrals:
NONE,* [Family Provider] -
Prescriptions:
Continued
therapeutic multivitamin Tablet
1 tab PO DAILY
acetaminophen [Tylenol Extra Strength] 500 mg Tablet
500 mg PO DAILYPRN PRN (Reason: mild pain)
levothyroxine 50 mcg Tablet
50 mcg PO DAILY
red yeast rice 600 mg Capsule
600 mg PO DAILY
CoQ-10
1 cap PO DAILY
Turmeric + Garlic + Peppermint
1 cap PO DAILY
Patient Comments:
05/26/2023, supplement.
cholecalciferol (vitamin D3)
4,000 mg PO DAILY
Discharge Orders:
Discharge Patient (As Directed); Ordered 05/28/23
Ordered By: Hellen Christiansen
Discharge Date and Time
Discharge Date/Time: 05/28/23 12:04
Print Language: ROMANSH
[2023-05-31 14:33] LABS: Vitamin B1, Whole Blood 103 nmol/L (70-180)
== END 2023-05-28 12:04 | disposition home or self-care (01) ==
LOC: 4 WEST ACU 16:03
PROVIDERS: Clinical Nurse Specialist Family Health; Registered Nurse; ADMITTING PHYSICIAN Hospitalist; ATTENDING PHYSICIAN Student in an Organized Health Care Education/Training Program; CONSULT PHYSICIAN Student in an Organized Health Care Education/Training Program; EMERGENCY PHYSICIAN Emergency Medicine
DX: R55 Syncope and collapse (principal); R25.1 Tremor, unspecified; R11.2 Nausea with vomiting, unspecified; R41.0 Disorientation, unspecified; R53.83 Other fatigue; R51.9 Headache, unspecified; M79.652 Pain in left thigh; R42 Dizziness and giddiness; E78.5 Hyperlipidemia, unspecified; E03.9 Hypothyroidism, unspecified; I25.2 Old myocardial infarction; L40.50 Arthropathic psoriasis, unspecified; R79.89 Other specified abnormal findings of blood chemistry; I10 Essential (primary) hypertension; Z88.2 Allergy status to sulfonamides; Z79.890 Hormone replacement therapy
CPT/HCPCS: 70544; 70548; 70551; 80053; 80061; 82140; 82607; 82728; 83540; 83550; 84425; 84443; 84484; 85025; 93005; 93306; 95816; 97161; 97165; 99285; A9585; G0378